=== PATIENT | male | born 1990 | race African-American/Black ===

== ENCOUNTER 2016-09-11 17:23 | Emergency (ER) | payer OTHER ==
[~2016-09-11] VITALS: Ht 172.7 cm; Wt 74.8 kg
[~2016-09-11 17:23] MED LIST: ZOFRAN4 MG ORAL
[2016-09-11 17:36] VITALS: BP 157/97
[2016-09-11] MEDS ORDERED: Lidocaine 1% 10mg/ml/Epi 0.005mg/ml 30ml vial INJ ONE (18:00)
--- NOTE | 2016-09-11 18:39 | Emergency Room Report ---
History of Present Illness General Chief Complaint: Laceration Source: Patient Present Illness HPI 25-year-old male presents emergency department complaining of laceration to the chin in addition to several abrasions to the left hand status post mechanical fall off skateboard approximately one hour ago. Patient denies loss of consciousness and can recall the entire event. Patient denies taking blood thinning medications. Patient states he is up-to-date with his tetanus vaccinations. Denies neck or back pain , denies bony tenderness . Denies numbness tingling or loss of sensation or gross motor movements of the extremities, incontinence of bowel or bladder. Denies CP, Palpitations, LOC, AMS , dizziness, Changes in Vision, Sensation, paresthesias, or a sudden severe headache. Allergies: Coded Allergies: No Known Allergies (Unverified , 07/17/14) Patient History Past Medical History: see triage record Past Surgical History: none Pertinent Family History: none Reviewed Nursing Documentation: PMH: Agreed, PSxH: Agreed Nursing Documentation-PMH Past Medical History: No Stated History Review of Systems All Other Systems: negative except mentioned in HPI Physical Exam Vital Signs Date Time Temp Pulse Resp B/P Pulse Ox O2 Delivery O2 Flow Rate FiO2 09/11/16 17:28 98.2 83 18 157/97 99 Room Air Sp02 EP Interpretation: reviewed, normal General Appearance: no apparent distress, alert, GCS 15, non-toxic Head: normocephalic, other - chin lac 1.5 cm Eyes: bilateral eye PERRL, bilateral eye normal inspection ENT: hearing grossly normal, normal pharynx, no angioedema, normal voice Neck: full range of motion, supple/symm/no masses Respiratory: lungs clear, normal breath sounds, speaking full sentences Cardiovascular #1: regular rate, rhythm, no edema, normal capillary refill Musculoskeletal: back normal, gait/station normal, normal range of motion, non- tender Neurologic: alert, oriented x3, responsive, motor strength/tone normal, sensory intact, speech normal Psychiatric: judgement/insight normal, memory normal, mood/affect normal Skin: normal color, no rash, warm/dry, well hydrated, abrasions - several superficial abrasions of the left medial hand all less than 0.5cm each., laceration - chin laceration approx 1.5 cm in length, Lymphatic: no adenopathy Procedures Laceration/Wound Repair Laceration/Wound Repair : Consent: Verbal Wound Location: head Wound's Depth, Shape: superficial Wound Length (cm): 1 Wound Explored: clean Irrigated w/ Saline (ccs): 500 Anesthesia: Lidocaine w/ Epi Volume Anesthetic (ccs): 1 Wound Debrided: minimal Wound Repaired With: sutures Suture Size/Type: 5:0 Number of Sutures: 3 Layer Closure?: No Sterile Dressing Applied?: Yes Splint Applied?: No Sling Applied?: No Patient Tolerated: Well Complications: None Medical Decision Making PA Attestation Dr. Peters is my supervising Physician whom patient management has been discussed with. Diagnostic Impression: Primary Impression: Laceration Additional Impression: Abrasion hand ER Course 25-year-old male presents emergency department complaining of laceration to the chin in addition to several abrasions to the left hand status post mechanical fall off skateboard approximately one hour ago. Patient denies loss of consciousness and can recall the entire event. Patient denies taking blood thinning medications. Patient states he is up-to-date with his tetanus vaccinations. Denies neck or back pain , denies bony tenderness . Denies numbness tingling or loss of sensation or gross motor movements of the extremities, incontinence of bowel or bladder. Denies CP, Palpitations, LOC, AMS , dizziness, Changes in Vision, Sensation, paresthesias, or a sudden severe headache. Ddx considered but are not limited to laceration, tendon injury, cellulitis, amputation Vital signs: are WNL, pt. is afebrile H&PE are most consistent with: chin laceration approx 1.5 cm in length, with several superficial abrasions of the left medial hand all less than 0.5cm each. ORDERS: none required at this time, the diagnosis is clinical ED INTERVENTIONS: -Tetanus vaccine was administered as pt. vaccination status was unknown. - The wound was copiously irrigated with normal saline, and explored for foreign body for which no FB was found. - pt. is anesthetized with 1%lidocaine w. epi. - The wound was approximated and closed using 3 interrupted 5.0 Prolene sutures. -Bacitracin and sterile dressing is applied. to laceration, and abrasions. Discussed with patient: That we make every effort to approximate the laceration as best as we can so that scarring will be as cosmetically pleasing as possible with our limited cosmetic skill set in the Emergency dept. Regardless of our best efforts there will be scarring after laceration repair. The extent of scarring is unknown at this time. DISCHARGE: At this time pt. is stable for d/c to home. Will provide printed patient care instructions, and any necessary prescriptions. Care plan and follow up instructions have been discussed with the patient prior to discharge. Last Vital Signs Date Time Temp Pulse Resp B/P Pulse Ox O2 Delivery O2 Flow Rate FiO2 09/11/16 17:36 98.3 83 18 157/97 99 Room Air Disposition: HOME, SELF-CARE Condition: Stable Scripts Bacitracin/Polymyxin B Sulfate (BACITRACIN-POLYMYXIN OINTMENT) 28.35 Gm Oint...g. 1 APPLIC TP BID, #28.3 GM Prov: Sarah Hoskins 09/11/16 Referrals: SUHAIL ALCALA,REFERRING (PCP) Patient Instructions: Laceration Care, Adult Additional Instructions: Take medications as directed. SUTURE REMOVAL IN 7 DAYS Follow up with a Primary Care Provider in 3-5 days, even if your symptoms have resolved. --Please review list of primary care clinics, if you do not already have a primary care provider Return sooner to ED if new symptoms occur, or current symptoms become worse. - Please note that this Emergency Department Report was dictated using [employer] composition teacher technology software, occasionally this can lead to erroneous entry secondary to interpretation by the dictation equipment. Sarah Hoskins Sep 11, 2016 18:39
[2016-09-11] MEDS ORDERED: BACITRACIN-P28.35 GM TP (18:41)
[2016-09-11] MEDS ORDERED: Bacitracin Oint UD TOPIC ONE (18:45)
[2016-09-11 18:55] VITALS: BP 157/97
== END 2016-09-11 18:56 | disposition home or self-care (01) ==
LOC: EMR 17:56
DX: S01.81XA Laceration without foreign body of other part of head, initial encounter (principal); S60.512A Abrasion of left hand, initial encounter; V00.131A Fall from skateboard, initial encounter; Y93.51 Activity, roller skating (inline) and skateboarding; Y92.9 Unspecified place or not applicable
CPT/HCPCS: 12011; 96372; 99284; Z7502

== ENCOUNTER 2017-12-08 16:08 | Emergency (ER) | payer OTHER ==
[~2017-12-08] VITALS: Ht 175.3 cm; Wt 70.3 kg
[~2017-12-08 16:08] MED LIST changes: +BACITRACIN-P28.35 GM TP
[2017-12-08] MEDS ORDERED: LORazepam Inj 2mg/ml 1ml IM ONE (16:30)
[2017-12-08 16:35] VITALS: BP 124/79
--- NOTE | 2017-12-08 16:42 | Emergency Room Report ---
History of Present Illness General Chief Complaint: Behavioral Complaint Source: Patient Present Illness HPI Patient is a 27-year-old male presented after increased difficulty breathing after smoking crystal meth. The patient reportedly had been having increased agitation. He cannot state when he last used drugs. History is limited by poor historian. Allergies: Coded Allergies: No Known Allergies (Unverified , 07/17/14) Patient History Reviewed Nursing Documentation: PMH: Agreed; PSxH: Agreed Nursing Documentation-PMH Past Medical History: No History, Except For Hx Asthma: Yes - bronchitis Physical Exam Vital Signs Date Time Temp Pulse Resp B/P (MAP) Pulse Ox O2 Delivery O2 Flow Rate FiO2 12/08/17 16:33 98.5 115 20 124/79 95 Room Air 98.4 General Appearance: well appearing, no apparent distress, alert, GCS 15 Head: normocephalic, atraumatic ENT: hearing grossly normal, normal voice Neck: full range of motion, supple Respiratory: lungs clear, normal breath sounds, no rhonchi, no respiratory distress, speaking full sentences Cardiovascular #1: no edema, tachycardia Gastrointestinal: normal inspection Musculoskeletal: normal inspection, no calf tenderness Neurologic: normal inspection, alert, oriented x3, responsive, embroidery operator III-XII nml as tested, normal gait Psychiatric: normal inspection, mood/affect normal Skin: no rash Medical Decision Making Diagnostic Impression: Primary Impression: Amphetamine abuse ER Course Patient presented for shortness of breath. The differential diagnosis included was not limited to arrhythmia, thyroid storm, sepsis, anemia, myocardial infarction, alcohol withdrawal, stimulant abuse, caffeine overdose among others. The patient was noted to have a benign exam. Patient had Ativan ordered for anxiety which the patient refused. The patient subsequently eloped without notifying staff. Last Vital Signs Date Time Temp Pulse Resp B/P (MAP) Pulse Ox O2 Delivery O2 Flow Rate FiO2 12/08/17 16:33 98.5 115 20 124/79 95 Room Air 98.4 Status: improved Disposition: ELOPED Condition: Stable Jayro Peters MD Dec 08, 2017 16:42
== END 2017-12-08 16:55 | disposition left against medical advice (07) ==
LOC: EMR 16:43
DX: F15.10 Other stimulant abuse, uncomplicated (principal); J45.909 Unspecified asthma, uncomplicated
CPT/HCPCS: 96372; 99283